=== PATIENT | male | born 1980 | race Caucasian/White ===

== ENCOUNTER 2018-02-19 16:13 | Inpatient (IN) | payer OTHER ==
[2018-02-19 17:11] LABS: BILIRUBIN,URINE NEGATIVE (NEG); CLARITY,URINE CLEAR; COLOR,URINE YELLOW; GLUCOSE,URINE NEGATIVE (NEG); NITRITE,URINE NEGATIVE (NEG); PH,URINE 5.5; PROTEIN,URINE NEGATIVE (NEG-TRACE); UROBILINOGEN,URINE 0.2 mg/dL (0.2 mg/dL)
[2018-02-19 17:17] LABS: ADD MAN DIFF? NO
[2018-02-19 17:19] LABS: BASO # 0.1 x10^3/uL (0.0-0.2); BASO % 1 % (0-3); EOS # 0.3 x10^3/uL (0.0-0.7); EOS % 4 % (0-3); HEMATOCRIT 35.7 % (39.0-53.0); LYMPH # 1.9 x10^3/uL (1.0-4.8); LYMPH % 28 % (24-48); MEAN CORPUSCULAR HEMOGLOBIN 28 pg (25-35); MEAN CORPUSCULAR HGB CONC 34 g/dL (31-37); MEAN CORPUSCULAR VOLUME 84 fL (79-100); MONO # 0.3 x10^3/uL (0.0-1.1); MONO % 5 % (0-9); NEUT # 4.4 x10^3uL (1.8-7.7); NEUT % 63 % (31-73); PLATELET COUNT 210 x10^3/uL (140-400); RED BLOOD COUNT 4.26 x10^6/uL (4.30-5.70); RED CELL DISTRIBUTION WIDTH 14.7 % (11.5-14.5)
[2018-02-19 17:25] LABS: BACTERIA,URINE 0 /HPF (0-FEW); SQUAMOUS EPITHELIAL CELL,UR FEW /LPF; WBC,URINE 0 /HPF (0-4)
[2018-02-19 17:27] LABS: ANION GAP 10 (6-14); BLOOD UREA NITROGEN 8 mg/dL (8-26); BUN/CREATININE RATIO 8 (6-20); CALCIUM 8.7 mg/dL (8.5-10.1); CARBON DIOXIDE 28 mmol/L (21-32); CHLORIDE 102 mmol/L (98-107); GFR 83.2; GLUCOSE 216 mg/dL (70-99); POTASSIUM 4.1 mmol/L (3.5-5.1); SODIUM 140 mmol/L (136-145)
[2018-02-19 17:28] LABS: INR 1.1 (0.8-1.1); PROTHROMBIN TIME PATIENT 13.2 SEC (11.7-14.0)
[2018-02-19 17:34] LABS: ALBUMIN 3.1 g/dL (3.4-5.0); ALBUMIN/GLOBULIN RATIO 0.8 (1.0-1.7); ALK PHOS 91 U/L (46-116); ALT (SGPT) 52 U/L (16-63); AST (SGOT) 24 U/L (15-37); CREATINE KINASE 127 U/L (39-308); LIPASE 76 U/L (73-393); TOTAL BILIRUBIN 0.4 mg/dL (0.2-1.0); TOTAL PROTEIN 6.9 g/dL (6.4-8.2)
[2018-02-19 17:44] LABS: THYROID STIM HORMONE (TSH) 3.156 uIU/mL (0.358-3.74); TROPONINI < 0.017 ng/mL (0.000-0.055)
[2018-02-19] MEDS ORDERED: CONTRAST GIVEN MC (17:45)
[2018-02-19 17:48] LABS: CKMB INDEX 0.5 % (0-4); CKMB MASS 0.6 ng/mL (0.0-3.6); CREATINE KINASE 131 U/L (39-308)
[2018-02-19 17:48] LABS: NT-PRO BNP 277 pg/mL (0-124)
[2018-02-19] MEDS: IOHEXOL 300 MG/ML 100ML VIAL. IV (17:53)
[2018-02-19] MEDS ORDERED: ONDANSETRON PF 4 MG/2 ML VIAL. IV (19:30)
[2018-02-19] MEDS ORDERED: ACETAMINOPHEN 325 MG TABLET. PO (19:30)
[2018-02-19] MEDS ORDERED: MORPHINE SULFATE 4 MG/ML DISP.SYRIN. IV (19:30)
[2018-02-19 20:57] LABS: POC GLUCOSE 145 mg/dL (70-99)
[2018-02-20 01:52] LABS: ADD MAN DIFF? NO; BASO % 1 % (0-3); EOS # 0.3 x10^3/uL (0.0-0.7); EOS % 4 % (0-3); HEMATOCRIT 34.4 % (39.0-53.0); HEMOGLOBIN 11.8 g/dL (13.0-17.5); LYMPH # 2.3 x10^3/uL (1.0-4.8); LYMPH % 34 % (24-48); MEAN CORPUSCULAR HEMOGLOBIN 29 pg (25-35); MEAN CORPUSCULAR HGB CONC 34 g/dL (31-37); MEAN CORPUSCULAR VOLUME 84 fL (79-100); MONO # 0.4 x10^3/uL (0.0-1.1); MONO % 6 % (0-9); NEUT # 3.8 x10^3uL (1.8-7.7); NEUT % 55 % (31-73); PLATELET COUNT 208 x10^3/uL (140-400); RED BLOOD COUNT 4.11 x10^6/uL (4.30-5.70); WHITE BLOOD COUNT 6.9 x10^3/uL (4.0-11.0)
[2018-02-20 02:17] LABS: TROPONINI < 0.017 ng/mL (0.000-0.055)
[2018-02-20 02:19] LABS: ALBUMIN 2.9 g/dL (3.4-5.0); ALBUMIN/GLOBULIN RATIO 0.9 (1.0-1.7); ALK PHOS 87 U/L (46-116); ALT (SGPT) 50 U/L (16-63); ANION GAP 10 (6-14); AST (SGOT) 22 U/L (15-37); BLOOD UREA NITROGEN 8 mg/dL (8-26); BUN/CREATININE RATIO 9 (6-20); CALCIUM 8.9 mg/dL (8.5-10.1); CARBON DIOXIDE 26 mmol/L (21-32); CHLORIDE 105 mmol/L (98-107); CREATININE 0.9 mg/dL (0.7-1.3); GFR 93.9; GLUCOSE 212 mg/dL (70-99); POTASSIUM 3.9 mmol/L (3.5-5.1); SODIUM 141 mmol/L (136-145); TOTAL BILIRUBIN 0.5 mg/dL (0.2-1.0); TOTAL PROTEIN 6.1 g/dL (6.4-8.2)
[2018-02-20 07:57] LABS: POC GLUCOSE 170 mg/dL (70-99)
[2018-02-20] MEDS: NAPROXEN 500 MG TABLET PO (09:25)
[2018-02-20] MEDS: PNEUMOC CONJ VACC 23-VALENT 0.5 ML VIAL. VAX IM (09:26)
[2018-02-20] MEDS: ALLOPURINOL 300 MG TABLET. PO (11:25)
[2018-02-20] MEDS: LISINOPRIL 10 MG TABLET PO (11:26)
[2018-02-20 11:41] LABS: POC GLUCOSE 168 mg/dL (70-99)
[2018-02-20 16:38] LABS: POC GLUCOSE 162 mg/dL (70-99)
[2018-02-20] MEDS: PANTOPRAZOLE 40 MG TABLET.DR. PO (16:58)
[2018-02-20] MEDS: POTASSIUM CHLORIDE 10 MEQ TABLET.ER. PO (16:59)
[2018-02-20] MEDS: FUROSEMIDE 20 MG/2 ML VIAL. IVP (16:59)
[2018-02-20 20:51] LABS: POC GLUCOSE 218 mg/dL (70-99)
[2018-02-20] MEDS: ENOXAPARIN 40 MG/0.4 ML SYRINGE. SQ (20:55)
[2018-02-20] MEDS: INSULIN GLARGINE 300 UNITS/3 ML INSULN.PEN. SQ (20:58)
[2018-02-21 05:16] LABS: HEMATOCRIT 37.1 % (39.0-53.0); HEMOGLOBIN 12.5 g/dL (13.0-17.5); MEAN CORPUSCULAR HEMOGLOBIN 28 pg (25-35); MEAN CORPUSCULAR HGB CONC 34 g/dL (31-37); MEAN CORPUSCULAR VOLUME 84 fL (79-100); PLATELET COUNT 224 x10^3/uL (140-400); RED BLOOD COUNT 4.41 x10^6/uL (4.30-5.70); RED CELL DISTRIBUTION WIDTH 14.8 % (11.5-14.5); WHITE BLOOD COUNT 6.7 x10^3/uL (4.0-11.0)
[2018-02-21 05:43] LABS: ALBUMIN/GLOBULIN RATIO 0.8 (1.0-1.7); ALK PHOS 93 U/L (46-116); ALT (SGPT) 47 U/L (16-63); ANION GAP 5 (6-14); AST (SGOT) 21 U/L (15-37); BLOOD UREA NITROGEN 10 mg/dL (8-26); BUN/CREATININE RATIO 9 (6-20); CALCIUM 9.3 mg/dL (8.5-10.1); CARBON DIOXIDE 31 mmol/L (21-32); CHLORIDE 102 mmol/L (98-107); CREATININE 1.1 mg/dL (0.7-1.3); GFR 74.5; GLUCOSE 185 mg/dL (70-99); POTASSIUM 3.8 mmol/L (3.5-5.1); SODIUM 138 mmol/L (136-145); TOTAL BILIRUBIN 0.4 mg/dL (0.2-1.0)
[2018-02-21] MEDS: ENOXAPARIN 40 MG/0.4 ML SYRINGE. SQ (07:35)
[2018-02-21] MEDS: LISINOPRIL 10 MG TABLET PO (07:36)
[2018-02-21] MEDS: ALLOPURINOL 300 MG TABLET. PO (07:36)
[2018-02-21] MEDS: PANTOPRAZOLE 40 MG TABLET.DR. PO (07:36)
[2018-02-21 07:37] LABS: POC GLUCOSE 150 mg/dL (70-99)
[2018-02-21 11:36] LABS: POC GLUCOSE 154 mg/dL (70-99)
== END 2018-02-21 15:37 | disposition home or self-care (01) | DRG 155 ==
LOC: ER 16:13 → 5 NORTH 19:01
DX: G47.33 Obstructive sleep apnea (adult) (pediatric) (principal); J98.11 Atelectasis; E66.01 Morbid (severe) obesity due to excess calories; Z68.41 Body mass index [BMI] 40.0-44.9, adult; R07.89 Other chest pain; K21.9 Gastro-esophageal reflux disease without esophagitis; I10 Essential (primary) hypertension; E78.5 Hyperlipidemia, unspecified; F17.210 Nicotine dependence, cigarettes, uncomplicated; E11.9 Type 2 diabetes mellitus without complications; Z86.718 Personal history of other venous thrombosis and embolism; Z86.711 Personal history of pulmonary embolism; Z88.1 Allergy status to other antibiotic agents; Z23 Encounter for immunization
CPT/HCPCS: 36415; 71045; 71275; 80053; 81001; 82550; 82553; 82962; 83690; 83880; 84443; 84484; 85025; 85027; 85610; 90732; 93005; 93306; 99285; 99285-25; J1650; J1815; Q9967

== ENCOUNTER 2019-12-15 09:10 | Emergency (ER) | payer OTHER ==
[~2019-12-15] VITALS: Ht 188 cm; Wt 144.5 kg
[~2019-12-15 09:10] MED LIST: ALLO300T PO; INSU100I32 SQ; LISI10TA2 PO; METF10007 PO; Pantoprazole PO
[2019-12-15 09:26] VITALS: BP 135/70
--- NOTE | 2019-12-15 09:43 | PHYS DOC ---
Past Medical History Past Medical History: Diabetes-Type II, Hypertension, Other Additional Past Medical Histor: gout, PE - both lungs Past Surgical History: Cholecystectomy, Tonsillectomy, Other Additional Past Surgical Histo: adnoids, R knee, dental Smoking Status: Current Every Day Smoker Alcohol Use: Rarely Drug Use: None Adult General Chief Complaint Chief Complaint: COUGH HPI HPI Patient is a 39 year old male with history of hypertension, diabetes type 2, current smoker, who presents to the ED today complaining of a productive cough, body aches, headache, subjective fevers, symptoms began yesterday. Review of Systems Review of Systems Constitutional: Reports subjective fevers, chills Eyes: Denies change in visual acuity, redness, or eye pain [] HENT: Denies nasal congestion or sore throat [] Respiratory: Reports cough, denies shortness of breath [] Cardiovascular: No additional information not addressed in HPI [] GI: Denies abdominal pain, nausea, vomiting, bloody stools or diarrhea [] : Denies dysuria or hematuria [] Musculoskeletal: Denies back pain or joint pain [] Integument: Denies rash or skin lesions [] Neurologic: Reports headache, denies focal weakness or sensory changes [] All other systems were reviewed and found to be within normal limits, except as documented in this note. Current Medications Current Medications Current Medications Medications (Trade) Dose Ordered Sig/[place] Start Time Stop Time Status Last Admin Dose Admin Albuterol/ Ipratropium (Duoneb) 3 ml 1X ONCE 12/15/19 09:45 12/15/19 09:46 DC 12/15/19 10:12 3 ML Benzonatate (Tessalon Perle) 100 mg 1X ONCE 12/15/19 09:45 12/15/19 09:46 DC 12/15/19 10:00 100 MG Prednisone (Prednisone) 50 mg 1X ONCE 12/15/19 09:45 12/15/19 09:46 DC 12/15/19 10:00 50 MG Allergies Allergies Allergies Coded Allergies Type Severity Reaction Last Updated Verified acetaminophen Allergy Intermediate 02/19/18 Yes Physical Exam Physical Exam Constitutional: Well developed, well nourished, no acute distress, non-toxic appearance. [] HENT: Normocephalic, atraumatic, bilateral external ears normal, oropharynx m oist, no oral exudates, nose normal. [] Eyes: PERRLA, EOMI, conjunctiva normal, no discharge. [] Neck: Normal range of motion, no tenderness, supple, no stridor. [] Cardiovascular:Heart rate regular rhythm, no murmur [] Lungs & Thorax: Bilateral breath sounds clear to auscultation [] Abdomen: Bowel sounds normal, soft, no tenderness, no masses, no pulsatile masses. [] Skin: Warm, dry, no erythema, no rash. [] Back: No tenderness, no CVA tenderness. [] Extremities: No tenderness, no cyanosis, no clubbing, ROM intact, no edema. [] Neurologic: Alert and oriented X 3, normal motor function, normal sensory function, no focal deficits noted. [] Psychologic: Affect normal, judgement normal, mood normal. [] Current Patient Data Vital Signs Vital Signs Date Time Temp Pulse Resp B/P (MAP) Pulse Ox O2 Delivery O2 Flow Rate FiO2 12/15/19 10:15 97 Room Air 12/15/19 09:26 98.3 91 20 135/70 (91) 98.3 Lab Values Laboratory Tests Test 12/15/19 09:24 Influenza Type A Antigen Negative (NEGATIVE) Influenza Type B Antigen Negative (NEGATIVE) EKG EKG [] Radiology/Procedures Radiology/Procedures []PROCEDURE: CHEST PA & LATERAL EXAM: Chest, 2 views. HISTORY: Cough. COMPARISON: None. FINDINGS: 2 views of the chest are obtained. There is no infiltrate, pleural effusion or pneumothorax. The heart is normal in size. IMPRESSION: No acute pulmonary finding. Electronically signed by: Rhonda Patel MD (12/15/2019 9:56 AM) [id number] DICTATED and SIGNED BY: RHONDA PATEL MD DATE: 12/15/19 0956 Course & Med Decision Making Course & Med Decision Making Pertinent Labs and Imaging studies reviewed. (See chart for details) This is a 39-year-old male patient presented to the ED today with a productive cough, body aches chills and subjective fevers as well as headaches, symptoms began yesterday. Patient is a smoker, was advised to consider smoking cessation. Chest x-ray interpreted by radiologist as negative for any acute findings, negative influenza A or B. Symptoms could be viral. Discharged with albuterol inhaler, Teslashonda Basilio. Follow-up with primary care doctor in 1-2 weeks. Janie Disclaimer Dragon Disclaimer This electronic medical record was generated, in whole or in part, using a voice recognition dictation system. Departure Departure Impression: Primary Impression: Smoking addiction Additional Impression: Cough Disposition: HOME, SELF-CARE Condition: STABLE Referrals: NON,STAFF (PCP) follow up with your doctor in 1-2 weeks Patient Instructions: Cough, Adult, [id number], Smoking Cessation Additional Instructions: Your chest x-ray in the emergency room was negative for any acute findings your influenza test was negative. Use the prescribed medications as ordered. Please follow-up with your doctor next week. Scripts Albuterol Sulfate (Proair Hfa) 8.5 Gm Hfa.aer.ad 2 PUFF IH PRN Q4-6HRS PRN for wheezing for 21 Days, #1 INHALER 0 Refills Prov: LILLIE HARMON APRN 12/15/19 Benzonatate (TESSALON PERLE) 100 Mg Capsule 1 CAP PO TID, #30 CAP Prov: LILLIE HARMON APRN 12/15/19 Problem Qualifiers LILLIE HARMON APRN Dec 15, 2019 09:43
[2019-12-15] MEDS ORDERED: IPRATRPIUM/ALBUTEROL 0.5/2.5MG 3 ML NEBU. NEB ONE (09:45)
[2019-12-15] MEDS ORDERED: predniSONE 10 MG TABLET PO ONE (09:45)
[2019-12-15] MEDS ORDERED: BENZONATATE 100 MG CAPSULE. PO ONE (09:45)
--- NOTE | 2019-12-15 09:59 | RAD ---
EXAM: Chest, 2 views. HISTORY: Cough. COMPARISON: None. FINDINGS: 2 views of the chest are obtained. There is no infiltrate, pleural effusion or pneumothorax. The heart is normal in size. IMPRESSION: No acute pulmonary finding. Electronically signed by: Rhonda Patel MD (12/15/2019 9:56 AM) [id number]
[2019-12-15 10:09] LABS: INFLUENZA A PATIENT NEGATIVE (NEGATIVE); INFLUENZA B PATIENT NEGATIVE (NEGATIVE)
[2019-12-15] MEDS ORDERED: BENZ100C PO (10:25)
[2019-12-15] MEDS ORDERED: ALBU2.5V8 IH (10:25)
== END 2019-12-15 10:34 | disposition home or self-care (01) ==
LOC: ER 09:10
DX: R05 Cough (principal); R51 Headache; R50.9 Fever, unspecified; E11.9 Type 2 diabetes mellitus without complications; I10 Essential (primary) hypertension; F17.200 Nicotine dependence, unspecified, uncomplicated; Z90.49 Acquired absence of other specified parts of digestive tract; Z90.89 Acquired absence of other organs; Z98.890 Other specified postprocedural states; Z88.6 Allergy status to analgesic agent; Z86.711 Personal history of pulmonary embolism
CPT/HCPCS: 71046; 87804; 99284; J7512; J7620